=== PATIENT | male | born 1955 | race Hispanic/Latino ===

== ENCOUNTER 2020-08-11 03:12 | Inpatient (IN) | payer BC ==
[~2020-08-11] VITALS: Ht 177.8 cm; Wt 79.4 kg
[2020-08-11 03:57] LABS: ABG BASE EXCESS -2.4 mmol/L (-2.0-3.0); ABG HCO3 20.9 mmol/L (21.0-28.0); ABG OXYGEN SATURATION 86.5 % (95.0-99.0); ABG PCO2 32 mmHg (35-48)
[2020-08-11] MEDS ORDERED: CEFTRIAXONE 2GM VIAL ONE (04:04)
[2020-08-11 04:26] LABS: BASOPHILS % (AUTO) 0.2 % (0.0-5.0); HEMATOCRIT 39.3 % (42-54); LYMPHOCYTES % (AUTO) 3.3 % (21.0-51.0); MEAN CORPUSCULAR HEMOGLOBIN 29.2 pg (27.0-33.0); MEAN CORPUSCULAR HGB CONC 33.3 g/dL (32.0-36.0); MEAN CORPUSCULAR VOLUME 87.5 fL (79-99); MONOCYTES % (AUTO) 3.4 % (3.0-13.0); NEUTROPHILS % (AUTO) 92.6 % (40.0-77.0); PLATELET COUNT (AUTO) 227 K/uL (130-400); RED BLOOD CELL COUNT(AUTO) 4.49 MIL/uL (4.50-6.20); RED CELL DISTRIBUTION WIDTH 12.4 % (11.0-15.5); WHITE BLOOD COUNT (AUTO) 13.1 K/uL (4.8-10.8)
[2020-08-11 04:36] LABS: CARBON DIOXIDE 22 mmol/L (21-32); CHLORIDE 100 mmol/L (101-111); CREATININE 1.3 mg/dL (0.5-1.5); GLOMERULAR FILTR. RATE CALC 59 mL/min (>60); GLUCOSE,RANDOM 169 mg/dL (70-105); POTASSIUM 4.3 mmol/L (3.5-5.1); SODIUM SERUM 137 mmol/L (136-145); UREA NITROGEN, BLOOD 30 mg/dL (7-18)
[2020-08-11] MEDS ORDERED: AZITHROMYCIN 500MG+NS 250ML 250 ML IV ONE (04:42)
[2020-08-11 04:48] LABS: ALANINE AMINOTRANSFERASE 40 U/L (12-78); ALBUMIN 3.2 g/dL (3.5-5.0); ASPARTATE AMINOTRANSFERASE 52 U/L (10-37); BILIRUBIN,TOTAL 0.7 mg/dL (0.2-1.0); CREATINE KINASE, TOTAL 138 U/L (21-232); MYOGLOBIN 94 ng/mL (10-92); TOTAL PROTEIN, SERUM 6.8 g/dL (6.0-8.3); TROPONIN I < 0.04 ng/mL (0.00-0.06)
[2020-08-11 05:05] LABS: B-TYPE NATRIURETIC PEPTIDE 169 pg/mL (0-100)
[2020-08-11 05:08] LABS: INR 1.14 (0.85-1.15); PROTHROMBIN TIME 12.1 SEC (9.6-11.6)
[2020-08-11 05:09] LABS: PARTIAL THROMBOPLASTIN TIME 29.7 SEC (26.3-35.5)
[2020-08-11] MEDS ORDERED: ONDANSETRON ODT 4MG TAB PO PRN (06:00)
[2020-08-11] MEDS ORDERED: ACETAMINOPHEN 325 MG TAB PO PRN (06:00)
[2020-08-11] MEDS ORDERED: DOXYCYCLINE HYCLATE 100 MG TABLET PO ONE ×2 (08:20→19:52)
[2020-08-11] MEDS ORDERED: DEXAMETHASONE 4 MG TAB ONE (08:21)
[2020-08-11] MEDS: DOXYCYCLINE HYCLATE 100 MG TABLET PO SCH ×2 (09:00→21:00)
[2020-08-11] MEDS: DEXAMETHASONE 4 MG TAB PO SCH (09:00)
[2020-08-11] MEDS ORDERED: GUAIFENESIN-DM 200/20 MG 10 ML ONE (12:43)
[2020-08-11] MEDS ORDERED: PHARMACY COMMUNICATION MISC SCH (14:30)
[2020-08-11] MEDS ORDERED: COMPOUND IV REFRIGERATED 1 EACH IVSOLN MISC PRN (17:00)
[2020-08-11] MEDS ORDERED: REMDESIVIR (EUA) 520 200 MG in 0.9% NACL 250ML 250 ML IV ONE (17:00)
[2020-08-12] MEDS ORDERED: CEFTRIAXONE 1G VIAL ONE (03:59)
[2020-08-12] MEDS ORDERED: REMDESIVIR LABS MISC SCH (06:00)
[2020-08-12 08:57] LABS: HEMATOCRIT 43.5 % (42-54); MEAN CORPUSCULAR HEMOGLOBIN 29.8 pg (27.0-33.0); MEAN CORPUSCULAR HGB CONC 32.6 g/dL (32.0-36.0); MEAN CORPUSCULAR VOLUME 91.2 fL (79-99); RED BLOOD CELL COUNT(AUTO) 4.77 MIL/uL (4.50-6.20); RED CELL DISTRIBUTION WIDTH 12.7 % (11.0-15.5); WHITE BLOOD COUNT (AUTO) 14.9 K/uL (4.8-10.8)
[2020-08-12 09:07] LABS: BILIRUBIN,TOTAL 0.5 mg/dL (0.2-1.0); CREATININE 1.3 mg/dL (0.5-1.5); MAGNESIUM 2.2 mg/dL (1.80-2.40); POTASSIUM 4.1 mmol/L (3.5-5.1); TOTAL PROTEIN, SERUM 7.8 g/dL (6.0-8.3)
[2020-08-12 09:11] VITALS: BP 119/85
[2020-08-12] MEDS: DOXYCYCLINE HYCLATE 100 MG TABLET PO SCH ×2 (10:06→21:56)
[2020-08-12] MEDS: DEXAMETHASONE 4 MG TAB PO SCH (10:06)
[2020-08-12] MEDS: CEFTRIAXONE 1G VIAL IVP SCH (10:06)
[2020-08-12] MEDS ORDERED: [UNRECOGNIZED DRUG - CODE] PO (11:19)
[2020-08-12] MEDS ORDERED: DICL50TA9 PO (11:19)
[2020-08-12 13:04] VITALS: BP 142/84
[2020-08-12] MEDS ORDERED: ENOXAPARIN SODIUM 40 MG/0.4 ML SYRINGE SQ SCH (14:15)
[2020-08-12] MEDS: GUAIFENESIN-DM 200/20 MG 10 ML PO PRN (14:55)
[2020-08-12] MEDS: REMDESIVIR (EUA) 520 100 MG in 0.9% NACL 250ML 250 ML IV SCH (16:21)
[2020-08-12 16:22] VITALS: BP 155/62
[2020-08-12 20:00] VITALS: BP 125/67
[2020-08-12 23:34] VITALS: BP 151/91
[2020-08-13 03:54] VITALS: BP 97/50
[2020-08-13] MEDS: GUAIFENESIN-DM 200/20 MG 10 ML PO PRN ×2 (06:12→20:47)
[2020-08-13] MEDS: CEFTRIAXONE 1G VIAL IVP SCH (08:35)
[2020-08-13] MEDS: DEXAMETHASONE 4 MG TAB PO SCH (08:35)
[2020-08-13] MEDS: DOXYCYCLINE HYCLATE 100 MG TABLET PO SCH ×2 (08:35→20:47)
[2020-08-13] MEDS: ENOXAPARIN SODIUM 40 MG/0.4 ML SYRINGE SQ SCH (08:36)
[2020-08-13 08:45] VITALS: BP 122/73
[2020-08-13 12:40] VITALS: BP 125/75
[2020-08-13 13:32] LABS: HEMATOCRIT 42.7 % (42-54); MEAN CORPUSCULAR HEMOGLOBIN 29.8 pg (27.0-33.0); MEAN CORPUSCULAR HGB CONC 33.3 g/dL (32.0-36.0); MEAN CORPUSCULAR VOLUME 89.7 fL (79-99); RED BLOOD CELL COUNT(AUTO) 4.76 MIL/uL (4.50-6.20); RED CELL DISTRIBUTION WIDTH 12.5 % (11.0-15.5); WHITE BLOOD COUNT (AUTO) 17.6 K/uL (4.8-10.8)
[2020-08-13 16:35] VITALS: BP 129/78
[2020-08-13 16:50] LABS: ALBUMIN 2.9 g/dL (3.5-5.0); BILIRUBIN,DIRECT 0.2 mg/dL (0.0-0.3); BILIRUBIN,TOTAL 0.5 mg/dL (0.2-1.0); TOTAL PROTEIN, SERUM 7.8 g/dL (6.0-8.3)
[2020-08-13] MEDS: REMDESIVIR (EUA) 520 100 MG in 0.9% NACL 250ML 250 ML IV SCH (17:29)
[2020-08-13 20:27] VITALS: BP 129/80
[2020-08-14 00:41] VITALS: BP 134/76
[2020-08-14 04:31] VITALS: BP 123/68
[2020-08-14 05:49] LABS: CREATININE 1.1 mg/dL (0.5-1.5); POTASSIUM 4.2 mmol/L (3.5-5.1)
[2020-08-14] MEDS: CEFTRIAXONE 1G VIAL IVP SCH (08:09)
[2020-08-14] MEDS: DOXYCYCLINE HYCLATE 100 MG TABLET PO SCH ×2 (08:15→20:09)
[2020-08-14] MEDS: DEXAMETHASONE 4 MG TAB PO SCH (08:16)
[2020-08-14] MEDS: ENOXAPARIN SODIUM 40 MG/0.4 ML SYRINGE SQ SCH (08:17)
[2020-08-14 08:21] VITALS: BP 116/71
[2020-08-14 08:37] LABS: ALBUMIN 2.4 g/dL (3.5-5.0); BILIRUBIN,DIRECT 0.1 mg/dL (0.0-0.3); BILIRUBIN,TOTAL 0.4 mg/dL (0.2-1.0); TOTAL PROTEIN, SERUM 6.6 g/dL (6.0-8.3)
[2020-08-14 12:30] VITALS: BP 111/73
[2020-08-14] MEDS: REMDESIVIR (EUA) 520 100 MG in 0.9% NACL 250ML 250 ML IV SCH (16:34)
[2020-08-14 16:40] VITALS: BP 115/66
[2020-08-14] MEDS: GUAIFENESIN-DM 200/20 MG 10 ML PO PRN (20:09)
[2020-08-14 20:20] VITALS: BP 126/70
[2020-08-14 21:24] LABS: APPEARANCE,URINE Clear (CLEAR); BILIRUBIN,URINE Negative (NEGATIVE); COLOR,URINE Yellow (YELLOW); GLUCOSE, URINE (UA) Negative (NEGATIVE); KETONES,URINE Negative (NEGATIVE); LEUKOCYTE ESTERASE ,URINE Negative (NEGATIVE); NITRATE,URINE Negative (NEGATIVE); OCCULT BLOOD,URINE Negative (NEGATIVE); PROTEIN,URINE Trace mg/dL (NEGATIVE)
[2020-08-14 21:34] LABS: BACTERIA,URINE None Seen /HPF (None Seen); RBC,URINE None Seen /HPF (0-1); SQUAMOUS EPITHELIAL CELL,UR None Seen /HPF (0-2); WBC,URINE 0-1 /HPF (0-1)
[2020-08-15 00:20] VITALS: BP 124/77
[2020-08-15 04:20] VITALS: BP 122/59
[2020-08-15] MEDS: DEXAMETHASONE 4 MG TAB PO SCH (07:39)
[2020-08-15] MEDS: ENOXAPARIN SODIUM 40 MG/0.4 ML SYRINGE SQ SCH (07:39)
[2020-08-15] MEDS: DOXYCYCLINE HYCLATE 100 MG TABLET PO SCH ×2 (07:39→19:46)
[2020-08-15] MEDS: CEFTRIAXONE 1G VIAL IVP SCH (07:40)
[2020-08-15 08:43] VITALS: BP 124/69
[2020-08-15 12:45] VITALS: BP 111/74
[2020-08-15 16:08] VITALS: BP 133/92
[2020-08-15] MEDS: REMDESIVIR (EUA) 520 100 MG in 0.9% NACL 250ML 250 ML IV SCH (16:18)
[2020-08-15] MEDS: GUAIFENESIN-DM 200/20 MG 10 ML PO PRN (19:46)
[2020-08-15 20:00] VITALS: BP 127/77
[2020-08-16 00:42] VITALS: BP 127/76
[2020-08-16 05:24] VITALS: BP 138/87
[2020-08-16 06:18] LABS: HEMATOCRIT 42.3 % (42-54); MEAN CORPUSCULAR HEMOGLOBIN 29.1 pg (27.0-33.0); MEAN CORPUSCULAR HGB CONC 32.6 g/dL (32.0-36.0); MEAN CORPUSCULAR VOLUME 89.2 fL (79-99); RED BLOOD CELL COUNT(AUTO) 4.74 MIL/uL (4.50-6.20); RED CELL DISTRIBUTION WIDTH 12.3 % (11.0-15.5); WHITE BLOOD COUNT (AUTO) 10.6 K/uL (4.8-10.8)
[2020-08-16 06:37] LABS: ALBUMIN 2.4 g/dL (3.5-5.0); BILIRUBIN,TOTAL 0.5 mg/dL (0.2-1.0); MAGNESIUM 2.2 mg/dL (1.80-2.40); TOTAL PROTEIN, SERUM 6.6 g/dL (6.0-8.3)
[2020-08-16] MEDS: CEFTRIAXONE 1G VIAL IVP SCH (08:14)
[2020-08-16] MEDS: DOXYCYCLINE HYCLATE 100 MG TABLET PO SCH ×2 (08:14→21:02)
[2020-08-16] MEDS: ENOXAPARIN SODIUM 40 MG/0.4 ML SYRINGE SQ SCH (08:14)
[2020-08-16] MEDS: DEXAMETHASONE 4 MG TAB PO SCH (08:14)
[2020-08-16 08:27] VITALS: BP_SYST 132; BP_SYST 140; BP_DIAS 65; BP_DIAS 69
[2020-08-16 11:28] VITALS: BP 135/79
[2020-08-16 16:26] VITALS: BP 132/69
[2020-08-16 20:42] VITALS: BP 131/80
[2020-08-17] VITALS (7 sets, daily range): BP systolic 118–140; BP diastolic 70–80
[2020-08-17] MEDS: ENOXAPARIN SODIUM 40 MG/0.4 ML SYRINGE SQ SCH (08:09)
[2020-08-17] MEDS: DOXYCYCLINE HYCLATE 100 MG TABLET PO SCH ×2 (08:09→20:52)
[2020-08-17] MEDS: DEXAMETHASONE 4 MG TAB PO SCH (08:09)
[2020-08-17] MEDS: CEFTRIAXONE 1G VIAL IVP SCH (08:09)
[2020-08-18 04:02] VITALS: BP 117/75
[2020-08-18 06:30] LABS: HEMATOCRIT 45.3 % (42-54); MEAN CORPUSCULAR HEMOGLOBIN 29.3 pg (27.0-33.0); MEAN CORPUSCULAR HGB CONC 32.9 g/dL (32.0-36.0); MEAN CORPUSCULAR VOLUME 89.2 fL (79-99); RED BLOOD CELL COUNT(AUTO) 5.08 MIL/uL (4.50-6.20); RED CELL DISTRIBUTION WIDTH 12.3 % (11.0-15.5); WHITE BLOOD COUNT (AUTO) 15.3 K/uL (4.8-10.8)
[2020-08-18 06:53] LABS: ALBUMIN 2.7 g/dL (3.5-5.0); BILIRUBIN,TOTAL 0.6 mg/dL (0.2-1.0); MAGNESIUM 2.1 mg/dL (1.80-2.40); POTASSIUM 4.3 mmol/L (3.5-5.1); TOTAL PROTEIN, SERUM 7.5 g/dL (6.0-8.3)
[2020-08-18 08:00] VITALS: BP 108/60
[2020-08-18] MEDS: CEFTRIAXONE 1G VIAL IVP SCH (10:44)
[2020-08-18] MEDS: DEXAMETHASONE 4 MG TAB PO SCH (10:45)
[2020-08-18] MEDS: DOXYCYCLINE HYCLATE 100 MG TABLET PO SCH ×2 (10:45→22:05)
[2020-08-18] MEDS: ENOXAPARIN SODIUM 40 MG/0.4 ML SYRINGE SQ SCH (10:46)
[2020-08-18 12:00] VITALS: BP 116/68
[2020-08-18 16:00] VITALS: BP 127/64
[2020-08-18 20:35] VITALS: BP 111/67
[2020-08-19] VITALS (7 sets, daily range): BP systolic 105–141; BP diastolic 65–80
[2020-08-19] MEDS: DEXAMETHASONE 4 MG TAB PO SCH (09:08)
[2020-08-19] MEDS: CEFTRIAXONE 1G VIAL IVP SCH (09:08)
[2020-08-19] MEDS: DOXYCYCLINE HYCLATE 100 MG TABLET PO SCH ×2 (09:09→20:45)
[2020-08-19] MEDS: ENOXAPARIN SODIUM 40 MG/0.4 ML SYRINGE SQ SCH (09:12)
[2020-08-20 00:17] VITALS: BP 126/75
[2020-08-20 04:23] VITALS: BP 112/70
[2020-08-20] MEDS: CEFTRIAXONE 1G VIAL IVP SCH (08:22)
[2020-08-20] MEDS: ENOXAPARIN SODIUM 40 MG/0.4 ML SYRINGE SQ SCH (08:23)
[2020-08-20] MEDS: DEXAMETHASONE 4 MG TAB PO SCH (08:23)
[2020-08-20] MEDS: DOXYCYCLINE HYCLATE 100 MG TABLET PO SCH ×2 (08:24→21:31)
[2020-08-20 08:29] VITALS: BP 110/61
[2020-08-20 12:40] VITALS: BP 118/71
[2020-08-20 16:30] VITALS: BP 111/75
[2020-08-20 20:08] VITALS: BP 126/66
[2020-08-20] MEDS: GUAIFENESIN-DM 200/20 MG 10 ML PO PRN (21:43)
[2020-08-21 00:17] VITALS: BP 123/79
[2020-08-21 04:11] VITALS: BP 124/85
[2020-08-21 04:42] LABS: HEMATOCRIT 46.2 % (42-54); MEAN CORPUSCULAR HEMOGLOBIN 28.8 pg (27.0-33.0); MEAN CORPUSCULAR HGB CONC 32.7 g/dL (32.0-36.0); MEAN CORPUSCULAR VOLUME 88.2 fL (79-99); RED BLOOD CELL COUNT(AUTO) 5.24 MIL/uL (4.50-6.20); RED CELL DISTRIBUTION WIDTH 12.2 % (11.0-15.5); WHITE BLOOD COUNT (AUTO) 16.8 K/uL (4.8-10.8)
[2020-08-21 05:26] LABS: MAGNESIUM 2.1 mg/dL (1.80-2.40); POTASSIUM 4.1 mmol/L (3.5-5.1)
[2020-08-21] MEDS: CEFTRIAXONE 1G VIAL IVP SCH (08:14)
[2020-08-21] MEDS: DOXYCYCLINE HYCLATE 100 MG TABLET PO SCH ×2 (08:15→20:17)
[2020-08-21] MEDS: DEXAMETHASONE 4 MG TAB PO SCH (08:15)
[2020-08-21] MEDS: ENOXAPARIN SODIUM 40 MG/0.4 ML SYRINGE SQ SCH (08:16)
[2020-08-21 08:29] VITALS: BP 107/80
[2020-08-21 12:35] VITALS: BP 126/87
[2020-08-21 16:30] VITALS: BP 125/67
[2020-08-21 19:59] VITALS: BP 128/68
[2020-08-21] MEDS: GUAIFENESIN-DM 200/20 MG 10 ML PO PRN (20:17)
[2020-08-22 00:06] VITALS: BP 124/75
[2020-08-22 03:58] VITALS: BP 136/78
[2020-08-22] MEDS: CEFTRIAXONE 1G VIAL IVP SCH (09:09)
[2020-08-22] MEDS: DEXAMETHASONE 4 MG TAB PO SCH (09:09)
[2020-08-22] MEDS: DOXYCYCLINE HYCLATE 100 MG TABLET PO SCH ×2 (09:09→21:01)
[2020-08-22] MEDS: GUAIFENESIN-DM 200/20 MG 10 ML PO PRN (09:09)
[2020-08-22] MEDS: ENOXAPARIN SODIUM 40 MG/0.4 ML SYRINGE SQ SCH (09:09)
[2020-08-22 12:22] VITALS: BP 122/53
[2020-08-22 16:50] VITALS: BP 123/79
[2020-08-22 20:39] VITALS: BP 131/81
[2020-08-23 01:09] VITALS: BP 128/75
[2020-08-23 03:55] VITALS: BP 150/85
[2020-08-23 08:00] VITALS: BP 105/65
[2020-08-23] MEDS: DOXYCYCLINE HYCLATE 100 MG TABLET PO SCH ×2 (08:36→21:00)
[2020-08-23] MEDS: GUAIFENESIN-DM 200/20 MG 10 ML PO PRN (08:37)
[2020-08-23] MEDS: CEFTRIAXONE 1G VIAL IVP SCH (08:37)
[2020-08-23] MEDS: DEXAMETHASONE 4 MG TAB PO SCH (08:37)
[2020-08-23] MEDS: ENOXAPARIN SODIUM 40 MG/0.4 ML SYRINGE SQ SCH (08:37)
[2020-08-23 12:53] VITALS: BP 113/68
[2020-08-23 16:57] VITALS: BP 126/76
[2020-08-23 20:00] VITALS: BP 115/69
[2020-08-24] VITALS: BP 111/71
[2020-08-24 04:00] VITALS: BP 122/82
[2020-08-24 06:33] LABS: HEMATOCRIT 41.9 % (42-54); MEAN CORPUSCULAR HEMOGLOBIN 29.5 pg (27.0-33.0); MEAN CORPUSCULAR HGB CONC 33.9 g/dL (32.0-36.0); MEAN CORPUSCULAR VOLUME 87.1 fL (79-99); RED BLOOD CELL COUNT(AUTO) 4.81 MIL/uL (4.50-6.20); RED CELL DISTRIBUTION WIDTH 12.3 % (11.0-15.5); WHITE BLOOD COUNT (AUTO) 14.5 K/uL (4.8-10.8)
[2020-08-24 06:54] LABS: POTASSIUM 3.9 mmol/L (3.5-5.1)
[2020-08-24 08:34] VITALS: BP 112/77
[2020-08-24] MEDS: CEFTRIAXONE 1G VIAL IVP SCH (08:58)
[2020-08-24] MEDS: DEXAMETHASONE 4 MG TAB PO SCH (08:58)
[2020-08-24] MEDS: GUAIFENESIN-DM 200/20 MG 10 ML PO PRN (08:59)
[2020-08-24] MEDS: ENOXAPARIN SODIUM 40 MG/0.4 ML SYRINGE SQ SCH (08:59)
[2020-08-24] MEDS: DOXYCYCLINE HYCLATE 100 MG TABLET PO SCH ×2 (08:59→19:48)
[2020-08-24 12:00] VITALS: BP 111/82
[2020-08-24 17:30] VITALS: BP 123/76
[2020-08-24 20:10] VITALS: BP 119/79
[2020-08-25 00:28] VITALS: BP 135/72
[2020-08-25 04:33] VITALS: BP 120/75
[2020-08-25 08:04] VITALS: BP 127/77
[2020-08-25] MEDS: DEXAMETHASONE 4 MG TAB PO SCH (08:30)
[2020-08-25] MEDS: GUAIFENESIN-DM 200/20 MG 10 ML PO PRN (08:30)
[2020-08-25] MEDS: DOXYCYCLINE HYCLATE 100 MG TABLET PO SCH (08:30)
[2020-08-25] MEDS: CEFTRIAXONE 1G VIAL IVP SCH (08:30)
[2020-08-25] MEDS: ENOXAPARIN SODIUM 40 MG/0.4 ML SYRINGE SQ SCH (08:31)
[2020-08-25 11:43] VITALS: BP 121/81
[2020-08-25 15:55] VITALS: BP 128/84
[2020-08-25 20:08] VITALS: BP 126/86
[2020-08-26 00:20] VITALS: BP 118/77
[2020-08-26 04:27] VITALS: BP 135/90
[2020-08-26 07:34] VITALS: BP 125/93
[2020-08-26] MEDS ORDERED: SOLU-MEDROL 40MG VIAL ONE (08:41)
[2020-08-26] MEDS ORDERED: SOLU-MEDROL 40MG VIAL IVP SCH (08:45)
[2020-08-26] MEDS: ENOXAPARIN SODIUM 40 MG/0.4 ML SYRINGE SQ SCH (08:47)
[2020-08-26] MEDS: DEXAMETHASONE 4 MG TAB PO SCH (08:51)
[2020-08-26 10:49] LABS: HEMATOCRIT 45.8 % (42-54); MEAN CORPUSCULAR HEMOGLOBIN 29.5 pg (27.0-33.0); MEAN CORPUSCULAR HGB CONC 33.6 g/dL (32.0-36.0); MEAN CORPUSCULAR VOLUME 87.7 fL (79-99); RED BLOOD CELL COUNT(AUTO) 5.22 MIL/uL (4.50-6.20); RED CELL DISTRIBUTION WIDTH 12.8 % (11.0-15.5); WHITE BLOOD COUNT (AUTO) 18.5 K/uL (4.8-10.8)
[2020-08-26 10:56] LABS: MAGNESIUM 1.9 mg/dL (1.80-2.40); POTASSIUM 3.7 mmol/L (3.5-5.1)
[2020-08-26 11:50] VITALS: BP 118/72
[2020-08-26 15:32] VITALS: BP 135/81
== END 2020-08-26 17:06 | DRG 177 ==
LOC: EDH 03:12 → EDHIP 05:03 → 4BH 08-12 08:32
PROVIDERS: ADMIT Internal Medicine Infectious Disease; ATTEND Internal Medicine Infectious Disease
PROC: XW033E5 Introduction of Remdesivir Anti-infective into Peripheral Vein, Percutaneous Approach, New Technology Group 5 (ICD-10-PCS; principal; 2020-08-11)
PROC: 5A09357 Assistance with Respiratory Ventilation, Less than 24 Consecutive Hours, Continuous Positive Airway Pressure (ICD-10-PCS; 2020-08-13)
DX: U07.1 COVID-19 (principal); J96.91 Respiratory failure, unspecified with hypoxia; J12.82 Pneumonia due to coronavirus disease 2019; E66.9 Obesity, unspecified; I10 Essential (primary) hypertension; R53.81 Other malaise; Z68.25 Body mass index [BMI] 25.0-25.9, adult
CPT/HCPCS: 36415; 71045; 80048; 80053; 80076; 81001; 82550; 82803; 82948; 83605; 83735; 83874; 83880; 84145; 84484; 85025; 85027; 85378; 85610; 85730; 86140; 86900; 86901; 87040; 87088; 87426; 87804; 93005; 94760; 99291; G0378; J0456; J0696; J1650; J2920; J7050; J8540